=== PATIENT | male | born 2000 | race Caucasian/White ===

== ENCOUNTER 2019-12-05 10:47 | Outpatient (NON) | payer BC, SELFPAY ==
[2019-12-05 20:34] LABS: SARS-CoV-2 RNA PCR Positive
== END 2019-12-05 10:48 ==
PROVIDERS: PCP Pediatrics; Visit Provider Internal Medicine Nephrology
DX: U07.1 COVID-19 (principal)
CPT/HCPCS: 87635; C9803; U0003